=== PATIENT | male | born 1935 | race Caucasian/White ===

== ENCOUNTER 2016-12-05 11:18 | Day surgery (SDC) | payer MEDICARE ==
[~2016-12-05 11:18] MED LIST: Acetaminophen TAB* 325 MG PO PRN; Buffered Lidocaine 0.9% SYRIN* 5 ML/SYR SYRINGE INTRADERM ONE
[2016-12-05] MEDS ORDERED: Midazolam* 1 MG/ML 2 ML VIAL (2 MG) ONE (12:45)
[2016-12-05] MEDS ORDERED: fentaNYL* 50 MCG/ML 2 ML VIAL (100 MCG VIAL) ONE (12:45)
[2016-12-05 14:39] VITALS: BP 114/73
[2016-12-05] MEDS ORDERED: Phenylephrine 2.5% OPTH.SOL* 2 ML BTL ONE (16:14)
[2016-12-05] MEDS ORDERED: Neomycin/Polymy/Dex OPHTH.OIN* 3.5 GM ONE (16:14)
[2016-12-05] MEDS ORDERED: acetaZOLAMIDE TAB* 250 MG ONE (16:14)
[2016-12-05] MEDS ORDERED: Tetracaine 0.5% OPTH.SOL 4 ML* 1 DROP BTL ONE (16:14)
[2016-12-05] MEDS ORDERED: Lidocaine 1% MPF* 2 ML VIAL ONE (16:14)
[2016-12-05] MEDS ORDERED: Buffered Lidocaine 0.9% SYRIN* 5 ML/SYR SYRINGE ONE (16:14)
[2016-12-05] MEDS ORDERED: Tropicamide 1% OPTH.SOL* BTL ONE (16:14)
[2016-12-05] MEDS ORDERED: Ketorolac 0.5% OPHTH (NF) 0.5 % 5 ML BTL ONE (16:14)
[2016-12-05] MEDS ORDERED: Cyclopentolate 1% OPTH.SOL* 2 ML BTL ONE (16:14)
[2016-12-05] MEDS ORDERED: Povidone Iodine 5% OPTH* 30 ML BTL ONE (16:14)
--- NOTE | 2016-12-06 09:47 | OP ---
DATE OF OPERATION: 12/05/16 - [facility] DATE OF : 35 SURGEON: Olegario Maurer MD ANESTHESIOLOGIST: Jaziel Ray MD ANESTHESIA: Monitored anesthesia care. PRE-OP DIAGNOSIS: Cataract, right eye. POST-OP DIAGNOSIS: Cataract, right eye. OPERATIVE PROCEDURE: Cataract surgery of the right eye. IMPLANTS: SN60WF 17.0 diopter lens to the right eye. COMPLICATIONS: None. DESCRIPTION OF PROCEDURE: The patient was given phenylephrine 2.5% and cyclopentolate 1% eye drops to the operative eye in the preoperative area. The patient was brought to the operating room where a time-out was taken to identify the correct patient, site, and side of surgery. The patient's right eye was prepped and draped in the usual sterile fashion with 5% Betadine. A second time- out was taken to verify the correct patient, site, and side of surgery, and correct lens selection. A lid speculum was placed to the right eye. A 1-mm paracentesis blade was used to make a clear corneal incision in the superotemporal position. Preservative free 1% lidocaine was injected into the anterior chamber. DisCoVisc was then injected into the anterior chamber. A 2.75 mm keratome blade was used to make a triplanar incision at the inferotemporal position. A cystotome initiated a capsulorrhexis which was completed with Utrata forceps in a continuous and curvilinear manner. Hydrodissection of the lens was performed with BSS on a cannula. The lens could be spun in a capsular bag. The phacoemulsification handpiece was used with a divide and conquer technique to remove to nucleus in its entirety with 17.41 CDE. The I/A handpiece was then removed with a residual cortical lens material. DisCoVisc was injected to inflate the capsular bag. The planned SN60WF 17.0 diopter lens was then injected into the capsular bag. The residual DisCoVisc was removed from the eye with the I/A handpiece. The corneal incisions were hydrated and no leaks occurred at physiologic pressure around 20 mmHg per palpation. The lid speculum was removed and drapes removed. Maxitrol ointment was placed to the surface of the operative eye. Adhesive patch and shield was placed on the operative eye. The patient was taken to the postoperative area in stable condition. [id number] #: [id number]
== END 2016-12-05 14:22 | disposition home or self-care (01) ==
LOC: OREAST 11:18
PROVIDERS: ATTEND Student in an Organized Health Care Education/Training Program
DX: H25.11 Age-related nuclear cataract, right eye (principal); H50.112 Monocular exotropia, left eye; I35.0 Nonrheumatic aortic (valve) stenosis; I10 Essential (primary) hypertension; N40.0 Benign prostatic hyperplasia without lower urinary tract symptoms; Z87.891 Personal history of nicotine dependence
CPT/HCPCS: A9270-GY; J2250; J3010; V2632